=== PATIENT | male | born 1945 | race Caucasian/White ===

== ENCOUNTER 2018-02-05 10:17 | Inpatient (IN) | payer OTHER ==
[~2018-02-05] VITALS: Ht 170.2 cm; Wt 113.0 kg
[2018-02-05 10:47] LABS: Hemoglobin 12.2 g/dL (13.5-17.5); Mean Corpuscular HGB 26.8 pg (26.0-34.0); Mean Corpuscular HGB Conc 32.1 g/dL (31.5-36.5); Mean Corpuscular Volume 84 fL (80-100); Mean Platelet Volume 11.7 fL (9.1-12.4); Platelet Count 222 K/mm3 (150-400); RDW Coefficient Variation 15.2 % (11.7-14.2); RDW Standard Deviation 46.3 fL (35.1-46.3); Red Blood Cell Count 4.55 M/mm3 (4.30-5.90); White Blood Cell Count 11.19 K/mm3 (4.00-11.30)
[2018-02-05 11:03] LABS: International Normalized Ratio 1.03; Prothrombin Time Results 10.7 Sec (9.7-11.5)
[2018-02-05] MEDS ORDERED: ATOR80 PO (11:03)
[2018-02-05] MEDS ORDERED: LOSA50 PO (11:03)
[2018-02-05] MEDS ORDERED: METO100ER PO (11:03)
[2018-02-05] MEDS ORDERED: HYDR-86 PO (11:04)
[2018-02-05] MEDS ORDERED: AMLO10 PO (11:05)
[2018-02-05] MEDS ORDERED: ISOD40ER PO (11:05)
[2018-02-05] MEDS ORDERED: FURO40 PO (11:06)
[2018-02-05] MEDS ORDERED: NITR.4SL SL (11:06)
[2018-02-05 11:07] LABS: Alanine Aminotransfer (ALT/SGP 28 U/L (12-78); Albumin, Blood 3.6 g/dL (3.4-5.0); Albumin/Globulin Ratio 0.9 (0.8-1.8); Alk Phos 110 U/L (50-136); Anion Gap 10 mmol/L (6-16); Aspartate Aminotrans (AST/SGOT 18 U/L (12-37); Bilirubin, Total 0.3 mg/dL (0.1-1.0); Blood Urea Nitrogen 36 mg/dL (8-24); Bun/Creatinine Ratio 17.7 (12.0-20.0); CO2, Blood 19 mmol/L (21-32); Calcium, Blood 9.4 mg/dL (8.5-10.1); Chloride, Blood 116 mmol/L (98-108); Cholesterol 149 mg/dL (50-200); Creatinine, Blood 2.03 mg/dL (0.60-1.20); Globulin, Blood 3.9 g/dL (2.2-4.0); Glomerular Filtration Rate 34 (60-); Glucose, Blood 172 mg/dL (70-99); HDL Cholesterol 37 mg/dL (>39); LDL/HDL RATIO 2.1; Low Density Lipoprotein Chol 77 mg/dL (0-110); Magnesium, Blood 1.7 mg/dL (1.6-2.4); Potassium, Blood 4.6 mmol/L (3.5-5.5); Sodium, Blood 145 mmol/L (136-145); Total Protein, Blood 7.5 g/dL (6.4-8.2); Triglycerides 175 mg/dL (30-160); Very Low Density Lipoprot Chol 35 mg/dL (6-32)
[2018-02-06 03:35] LABS: Hematocrit 34.7 % (37.0-53.0); Hemoglobin 11.1 g/dL (13.5-17.5); Mean Corpuscular HGB 26.2 pg (26.0-34.0); Mean Corpuscular Volume 82 fL (80-100); RDW Coefficient Variation 15.2 % (11.7-14.2); RDW Standard Deviation 45.2 fL (35.1-46.3); Red Blood Cell Count 4.24 M/mm3 (4.30-5.90); White Blood Cell Count 10.11 K/mm3 (4.00-11.30)
[2018-02-06 03:45] LABS: Mean Platelet Volume 12.2 fL (9.1-12.4); Platelet Count 182 K/mm3 (150-400)
[2018-02-06 04:00] LABS: Alanine Aminotransfer (ALT/SGP 27 U/L (12-78); Albumin/Globulin Ratio 0.8 (0.8-1.8); Alk Phos 81 U/L (50-136); Anion Gap 8 mmol/L (6-16); Aspartate Aminotrans (AST/SGOT 54 U/L (12-37); Bilirubin, Total 0.4 mg/dL (0.1-1.0); Blood Urea Nitrogen 33 mg/dL (8-24); Bun/Creatinine Ratio 17.6 (12.0-20.0); CHOL/HDL RATIO 3.6; CO2, Blood 19 mmol/L (21-32); Calcium, Blood 8.7 mg/dL (8.5-10.1); Chloride, Blood 116 mmol/L (98-108); Cholesterol 119 mg/dL (50-200); Creatinine, Blood 1.88 mg/dL (0.60-1.20); Globulin, Blood 3.6 g/dL (2.2-4.0); Glomerular Filtration Rate 38 (60-); Glucose, Blood 100 mg/dL (70-99); HDL Cholesterol 33 mg/dL (>39); LDL/HDL RATIO 1.6; Low Density Lipoprotein Chol 52 mg/dL (0-110); Potassium, Blood 5.3 mmol/L (3.5-5.5); Sodium, Blood 143 mmol/L (136-145); Total Protein, Blood 6.6 g/dL (6.4-8.2); Triglycerides 171 mg/dL (30-160); Very Low Density Lipoprot Chol 34 mg/dL (6-32)
[2018-02-06] MEDS ORDERED: ISOMON20 PO (13:59)
[2018-02-06] MEDS ORDERED: Plavix75 MG PO (14:12)
[2018-02-06] MEDS ORDERED: FAMO20 PO (14:12)
== END 2018-02-06 14:30 | disposition home or self-care (01) | DRG 282 ==
LOC: ER 10:17 → ICUW 10:44
PROVIDERS: Emergency Medicine; Physician Assistant
PROC: B2111ZZ Fluoroscopy of Multiple Coronary Arteries using Low Osmolar Contrast (ICD-10-PCS; principal; 2018-02-05)
PROC: B41J1ZZ Fluoroscopy of Other Lower Arteries using Low Osmolar Contrast (ICD-10-PCS; 2018-02-05)
PROC: 4A023N7 Measurement of Cardiac Sampling and Pressure, Left Heart, Percutaneous Approach (ICD-10-PCS; 2018-02-05)
DX: I21.3 ST elevation (STEMI) myocardial infarction of unspecified site (principal); Z95.5 Presence of coronary angioplasty implant and graft; I24.9 Acute ischemic heart disease, unspecified; I25.2 Old myocardial infarction; I25.10 Atherosclerotic heart disease of native coronary artery without angina pectoris; E78.5 Hyperlipidemia, unspecified; I12.9 Hypertensive chronic kidney disease with stage 1 through stage 4 chronic kidney disease, or unspecified chronic kidney disease; G47.33 Obstructive sleep apnea (adult) (pediatric); N18.3 Chronic kidney disease, stage 3 (moderate); Z79.01 Long term (current) use of anticoagulants
CPT/HCPCS: 36415; 36416; 80053; 80061; 83735; 83880; 84484; 85027; 85347; 85610; 85730; 86850; 86900; 86901; 93005; 93010; 93459; 94660; 99152; 99153; 99285; C1769; C8929; J0282; J1644; J2250; J2405; J3010; J7030; Q9957; Q9967

== ENCOUNTER → 2018-07-04 | Outpatient (CLI) | payer OTHER ==
[~2018-07-04] MED LIST: AMLO10 PO; AMLO5 PO; ATOR80 PO; Azor 10-20 MG1 EACH; FAMO20 PO; FURO40 PO; HYDCHL25; HYDR-86 PO; HYDR1TAB94 PO; ISOD40ER PO; ISOMON20 PO; LOSA50 PO; METO100ER PO; NITR.4SL SL; PRED1 PO; Plavix75 MG PO
[2018-07-04 19:01] LABS: BASOPHILS ABSOLUTE AUTO 0.06 K/mm3 (0.00-0.23); BASOPHILS PERCENT AUTO 1 % (0-2); EOSINOPHILS ABSOLUTE AUTO 0.24 K/mm3 (0.00-0.68); EOSINOPHILS PERCENT AUTO 2 % (0-6); Hematocrit 36.9 % (37.0-53.0); Hemoglobin 11.7 g/dL (13.5-17.5); IMMATURE GRAN ABSOLUTE AUTO 0.05 K/mm3 (0.00-0.10); IMMATURE GRAN PERCENT AUTO 0 % (0-1); LYMPHOCYTES ABSOLUTE AUTO 2.15 K/mm3 (0.84-5.20); LYMPHOCYTES PERCENT AUTO 17 % (21-46); MONOCYTES ABSOLUTE AUTO 0.89 K/mm3 (0.16-1.47); MONOCYTES PERCENT AUTO 7 % (4-13); Mean Corpuscular HGB 26.4 pg (26.0-34.0); Mean Corpuscular HGB Conc 31.7 g/dL (31.5-36.5); Mean Corpuscular Volume 83 fL (80-100); Mean Platelet Volume 12.5 fL (9.1-12.4); NEUTROPHILS ABSOLUTE AUTO 8.95 K/mm3 (1.96-9.15); NEUTROPHILS PERCENT AUTO 73 % (41-73); Platelet Count 214 K/mm3 (150-400); RDW Coefficient Variation 15.9 % (11.7-14.2); RDW Standard Deviation 48.4 fL (35.1-46.3); Red Blood Cell Count 4.43 M/mm3 (4.30-5.90); White Blood Cell Count 12.34 K/mm3 (4.00-11.30)
== END | disposition home or self-care (01) ==
LOC: LAB SHORT 18:08 → LAB 18:08
PROVIDERS: Nurse Practitioner
DX: M25.521 Pain in right elbow (principal)
CPT/HCPCS: 84550; 85025

== ENCOUNTER 2019-11-03 16:58 | Observation (INO) | payer OTHER ==
[~2019-11-03] VITALS: Ht 170.2 cm; Wt 103.1 kg
[~2019-11-03 16:58] MED LIST changes: +ASPI325EC PO
[2019-11-03 17:39] LABS: BASOPHILS ABSOLUTE AUTO 0.08 K/mm3 (0.00-0.23); BASOPHILS PERCENT AUTO 1 % (0-2); EOSINOPHILS ABSOLUTE AUTO 0.25 K/mm3 (0.00-0.68); EOSINOPHILS PERCENT AUTO 2 % (0-6); Hematocrit 41.4 % (37.0-53.0); IMMATURE GRAN ABSOLUTE AUTO 0.02 K/mm3 (0.00-0.10); IMMATURE GRAN PERCENT AUTO 0 % (0-1); LYMPHOCYTES ABSOLUTE AUTO 2.24 K/mm3 (0.84-5.20); LYMPHOCYTES PERCENT AUTO 20 % (21-46); MONOCYTES ABSOLUTE AUTO 0.78 K/mm3 (0.16-1.47); MONOCYTES PERCENT AUTO 7 % (4-13); Mean Corpuscular HGB 26.9 pg (26.0-34.0); Mean Corpuscular HGB Conc 31.4 g/dL (31.5-36.5); Mean Corpuscular Volume 86 fL (80-100); Mean Platelet Volume 11.7 fL (9.1-12.4); NEUTROPHILS PERCENT AUTO 70 % (41-73); Platelet Count 255 K/mm3 (150-400); RDW Coefficient Variation 14.8 % (11.7-14.2); Red Blood Cell Count 4.84 M/mm3 (4.30-5.90); White Blood Cell Count 11.27 K/mm3 (4.00-11.30)
[2019-11-03 18:03] LABS: Albumin, Blood 3.9 g/dL (3.4-5.0); Albumin/Globulin Ratio 0.9 (0.8-1.8); Bilirubin, Total 0.3 mg/dL (0.1-1.0); Bun/Creatinine Ratio 18.5 (12.0-20.0); Calcium, Blood 10.2 mg/dL (8.5-10.1); Creatinine, Blood 2.33 mg/dL (0.60-1.20); Globulin, Blood 4.3 g/dL (2.2-4.0); Potassium, Blood 5.3 mmol/L (3.5-5.5); Total Protein, Blood 8.2 g/dL (6.4-8.2)
[2019-11-03 19:19] LABS: Prothrombin Time Results 10.7 Sec (9.7-11.5)
[2019-11-03] MEDS ORDERED: HYDROCHLOROTH12.5 MG PO (19:41)
[2019-11-03] MEDS ORDERED: SODBIC650 PO (19:41)
[2019-11-04] MEDS ORDERED: FURO40 PO (01:31)
--- NOTE | 2019-11-04 03:58 | NUR ---
SUMMARY PT ARRIVED TO FLOOR IN NO DISTRESS. PT NEURO'S HAVE CHECKED ORDERED. PT STILL HAS DIFFICULTY FINDING WORDS AT TIMES. NO WEAKNESS OR FACIAL DROOP NOTED. WCTM. PT CURRENTLY SLEEPING AND BREATHING ESY. CALL LIGHT IN REACH.
[2019-11-04 05:21] LABS: BASOPHILS ABSOLUTE AUTO 0.06 K/mm3 (0.00-0.23); BASOPHILS PERCENT AUTO 1 % (0-2); EOSINOPHILS ABSOLUTE AUTO 0.14 K/mm3 (0.00-0.68); EOSINOPHILS PERCENT AUTO 1 % (0-6); Hematocrit 37.9 % (37.0-53.0); Hemoglobin 12.2 g/dL (13.5-17.5); IMMATURE GRAN ABSOLUTE AUTO 0.03 K/mm3 (0.00-0.10); IMMATURE GRAN PERCENT AUTO 0 % (0-1); LYMPHOCYTES ABSOLUTE AUTO 2.75 K/mm3 (0.84-5.20); LYMPHOCYTES PERCENT AUTO 26 % (21-46); MONOCYTES ABSOLUTE AUTO 0.91 K/mm3 (0.16-1.47); MONOCYTES PERCENT AUTO 9 % (4-13); Mean Corpuscular HGB 27.2 pg (26.0-34.0); Mean Corpuscular HGB Conc 32.2 g/dL (31.5-36.5); Mean Corpuscular Volume 85 fL (80-100); Mean Platelet Volume 11.9 fL (9.1-12.4); NEUTROPHILS ABSOLUTE AUTO 6.77 K/mm3 (1.96-9.15); NEUTROPHILS PERCENT AUTO 64 % (41-73); Platelet Count 236 K/mm3 (150-400); RDW Coefficient Variation 14.8 % (11.7-14.2); RDW Standard Deviation 45.7 fL (35.1-46.3); Red Blood Cell Count 4.48 M/mm3 (4.30-5.90); White Blood Cell Count 10.66 K/mm3 (4.00-11.30)
[2019-11-04 05:52] LABS: Albumin, Blood 3.5 g/dL (3.4-5.0); Albumin/Globulin Ratio 0.9 (0.8-1.8); Bilirubin, Total 0.3 mg/dL (0.1-1.0); Bun/Creatinine Ratio 17.4 (12.0-20.0); Calcium, Blood 9.6 mg/dL (8.5-10.1); Creatinine, Blood 2.3 mg/dL (0.60-1.20); Globulin, Blood 3.7 g/dL (2.2-4.0); Potassium, Blood 4.9 mmol/L (3.5-5.5); Total Protein, Blood 7.2 g/dL (6.4-8.2)
--- NOTE | 2019-11-04 06:46 | NUR ---
Patient in room 343 has given promission to student nurse LUÍS SPRINGER to [facility] on 11/04/2019 from [phone]
--- NOTE | 2019-11-04 15:03 | NUR ---
1430 PT DISCHARGED TO HOME. NO NEW MEDS. PT EDCUATED REGARDING MEDICATIONS AND HTN AND MODIFIABLE RISK FACTORS. PT TO FOLLOW UP WITH PCP. PT DRESSED BY SELF AND REQUESTED TO WALK OUT WITH . NO WC NEEDED PER PT. STUDENT NURSE OCCOMPANIED.
== END 2019-11-04 14:30 | disposition home or self-care (01) ==
LOC: ER 16:58 → MEDS 16:59
PROVIDERS: Emergency Medicine; Physician Assistant; ADMIT Internal Medicine
DX: R47.1 Dysarthria and anarthria (principal); I16.0 Hypertensive urgency; I65.29 Occlusion and stenosis of unspecified carotid artery; I12.9 Hypertensive chronic kidney disease with stage 1 through stage 4 chronic kidney disease, or unspecified chronic kidney disease; N18.3 Chronic kidney disease, stage 3 (moderate); I25.10 Atherosclerotic heart disease of native coronary artery without angina pectoris; I25.2 Old myocardial infarction; E78.5 Hyperlipidemia, unspecified; K21.9 Gastro-esophageal reflux disease without esophagitis; Z79.82 Long term (current) use of aspirin; Z79.02 Long term (current) use of antithrombotics/antiplatelets; Z88.8 Allergy status to other drugs, medicaments and biological substances; Z79.899 Other long term (current) drug therapy; G47.33 Obstructive sleep apnea (adult) (pediatric); Z99.89 Dependence on other enabling machines and devices; Z95.1 Presence of aortocoronary bypass graft
CPT/HCPCS: 36415; 70450; 70551; 80053; 85025; 85610; 85730; 93005; 93010; 93306; 93880; 96372; 96374; 99285-25; A9270-GY; G0378; J1644

== ENCOUNTER 2019-11-19 18:26 | Inpatient (IN) | payer OTHER ==
[~2019-11-19] VITALS: Ht 170.2 cm; Wt 103.0 kg
[~2019-11-19 18:26] MED LIST changes: +HYDROCHLOROTH12.5 MG PO; +SODBIC650 PO
[2019-11-19 18:50] LABS: BASOPHILS ABSOLUTE AUTO 0.07 K/mm3 (0.00-0.23); BASOPHILS PERCENT AUTO 1 % (0-2); EOSINOPHILS ABSOLUTE AUTO 0.32 K/mm3 (0.00-0.68); EOSINOPHILS PERCENT AUTO 3 % (0-6); Hematocrit 38.1 % (37.0-53.0); Hemoglobin 12.2 g/dL (13.5-17.5); IMMATURE GRAN ABSOLUTE AUTO 0.03 K/mm3 (0.00-0.10); IMMATURE GRAN PERCENT AUTO 0 % (0-1); LYMPHOCYTES ABSOLUTE AUTO 2.72 K/mm3 (0.84-5.20); LYMPHOCYTES PERCENT AUTO 25 % (21-46); MONOCYTES ABSOLUTE AUTO 0.99 K/mm3 (0.16-1.47); MONOCYTES PERCENT AUTO 9 % (4-13); Mean Corpuscular HGB 27.4 pg (26.0-34.0); Mean Corpuscular Volume 85 fL (80-100); Mean Platelet Volume 11.4 fL (9.1-12.4); NEUTROPHILS ABSOLUTE AUTO 6.82 K/mm3 (1.96-9.15); NEUTROPHILS PERCENT AUTO 62 % (41-73); Platelet Count 225 K/mm3 (150-400); RDW Coefficient Variation 14.7 % (11.7-14.2); RDW Standard Deviation 46.3 fL (35.1-46.3); Red Blood Cell Count 4.46 M/mm3 (4.30-5.90); White Blood Cell Count 10.95 K/mm3 (4.00-11.30)
[2019-11-19 19:16] LABS: Alanine Aminotransfer (ALT/SGP 27 U/L (12-78); Albumin, Blood 3.7 g/dL (3.4-5.0); Albumin/Globulin Ratio 0.9 (0.8-1.8); Alk Phos 87 U/L (50-136); Anion Gap 4 mmol/L (6-16); Aspartate Aminotrans (AST/SGOT 16 U/L (12-37); Bilirubin, Total 0.3 mg/dL (0.1-1.0); Blood Urea Nitrogen 38 mg/dL (8-24); Bun/Creatinine Ratio 17.4 (12.0-20.0); CO2, Blood 26 mmol/L (21-32); Calcium, Blood 9.6 mg/dL (8.5-10.1); Chloride, Blood 111 mmol/L (98-108); Creatinine, Blood 2.18 mg/dL (0.60-1.20); Globulin, Blood 3.9 g/dL (2.2-4.0); Glomerular Filtration Rate 31 (60-); Glucose, Blood 105 mg/dL (70-99); Sodium, Blood 141 mmol/L (136-145); Total Protein, Blood 7.6 g/dL (6.4-8.2); Troponin I <0.015 ng/mL (0.000-0.040)
[2019-11-20] MEDS ORDERED: LOSA25 PO (01:02)
[2019-11-20] MEDS ORDERED: Norco 5-325 Ta1 EACH PO (01:06)
[2019-11-20] MEDS ORDERED: THERA-D2000 UNIT PO (01:06)
--- NOTE | 2019-11-20 05:48 | NUR ---
SHIFT SUMMARY: ESTELA IS A PLEASANT GENTLEMAN WHO ADMITTED FROM THE ER OVERNIGHT. HE IS A&OX4. HE HAS A CARDIAC HISTORY SIGNIFICANT FOR HTN, HLD, MIx3, FOUR VESSEL CABG IN 1995, AND RETICULOCYTE SYSTOLIC HEART FAILURE. HE DENIES ANY CHEST PAIN OR SOB. HE IS INDPENDENT TO THE BATHROOM. HE GAVE A THOROUGH HISTORY AND IS CONCERNED ABOUT CONTINUING TO TAKE HIS MEDICATIONS PRESCRIBED BY HIS GLUE MAKER BONE WHILE IN THE HOSPITAL. HE SEES DR. ROTH FOR HIS CKD III. HE DENIED THE NEED FOR CPAP, STATING THAT HE DOES NOT USE ONE AT HOME BUT MANAGES HIS AIRWAY BY SLEEPING ELEVATED ON PILLOWS. HE USES HIS CALL LIGHT APPROPRIATELY. HEPARIN DRIP INFUSING. WILL REPORT TO DAY SHIFT RN.
[2019-11-20 09:07] LABS: International Normalized Ratio 1.06; Prothrombin Time Results 11.3 Sec (9.7-11.5)
--- NOTE | 2019-11-20 11:22 | NUR ---
PT TO EDGE INKER AT THIS TIME
--- NOTE | 2019-11-20 12:52 | NUR ---
PT RETURNS FROM CRIMINAL DEFENSE LAWYER, ANGIOSEAL IN PLACE NO ACTIVE BLEEDING FROM SITE. SKIN PWD AND INTACT
--- NOTE | 2019-11-20 17:33 | NUR ---
SHIFT NOTE PT HAS BEEN RESTING CP FREE T/O THE DAY. PT INITIALLY HAD ANXIETY ABOUT GOING FOR ANGIO THIS AM, BUT WAS RESOLVED WITH ATIVAN PRIOR TO ANGIO. PT TO HIGH SCHOOL SCIENCE TEACHER, RETURNS WITH ANGIOSEAL PLACED TO RT GROIN, NO INTERVENTIONS WERE NEEDED. PT SITTING UP AT BEDSIDE EATING AT THIS TIME. PT IS NEARLY COMPLETE WITH 1L NS BOLUS.
--- NOTE | 2019-11-20 19:30 | NUR ---
SHIFT ASSESSMENT PT IS ALERT AND ORIENTED UP WALKING IN ROOM. OFF GOING BEDSIDE REPORT RECIEVED FROM LUIS DOTSON. PT STATES HE FEELS GREAT AND HAS NO PAIN. NO SOB NOTED UPON PT BEING UP AND WANDERING ROOM. IV WAS DISCONECTED AT THIS TIME. IV SITE TO RIGHT AC IS PATENT AND NO S/S OF INFECTION. VITALS ARE STABLE AT THIS TIME. RIGHT ANGOISEAL WAS CHECKED BY THIS RN. SITE IS SOFT WITH NO TENDERNESS. DRESSING IS CDI WITH A SMALL SPOT OF BLOOD. OVERALL PT SEEMS PLESANT AND COOPERTIVE WITH CARE. WILL CON'T TO MONITOR PT T/O REMAINDER OF SHIFT. CALL LIGHT IN REACH OF PT.
--- NOTE | 2019-11-20 23:43 | NUR ---
ASSESSMENT PT WAS RESTING WELL UPON THIS RN ENTERING ROOM. HE WOKE EASILY TO VERBAL STIMULI. STATES HE FEELS GOOD AND HAS NO COMPLAINTS. VITALS ARE STABLE AT THIS TIME. WILL CON'T TO MONITOR PT. CALL LIGHT IN REACH AND ENCOURAGED PT TO USE BEFORE GETTING UP AND AROUND IN ROOM.
[2019-11-21 03:56] LABS: BASOPHILS ABSOLUTE AUTO 0.04 K/mm3 (0.00-0.23); BASOPHILS PERCENT AUTO 0 % (0-2); EOSINOPHILS PERCENT AUTO 2 % (0-6); Hematocrit 35.9 % (37.0-53.0); Hemoglobin 11.6 g/dL (13.5-17.5); IMMATURE GRAN ABSOLUTE AUTO 0.03 K/mm3 (0.00-0.10); IMMATURE GRAN PERCENT AUTO 0 % (0-1); LYMPHOCYTES ABSOLUTE AUTO 2.26 K/mm3 (0.84-5.20); LYMPHOCYTES PERCENT AUTO 22 % (21-46); MONOCYTES ABSOLUTE AUTO 0.82 K/mm3 (0.16-1.47); MONOCYTES PERCENT AUTO 8 % (4-13); Mean Corpuscular HGB 27.3 pg (26.0-34.0); Mean Corpuscular HGB Conc 32.3 g/dL (31.5-36.5); Mean Corpuscular Volume 85 fL (80-100); Mean Platelet Volume 12.1 fL (9.1-12.4); NEUTROPHILS ABSOLUTE AUTO 6.72 K/mm3 (1.96-9.15); NEUTROPHILS PERCENT AUTO 67 % (41-73); Platelet Count 224 K/mm3 (150-400); RDW Coefficient Variation 14.7 % (11.7-14.2); RDW Standard Deviation 45.1 fL (35.1-46.3); Red Blood Cell Count 4.25 M/mm3 (4.30-5.90); White Blood Cell Count 10.07 K/mm3 (4.00-11.30)
[2019-11-21 04:16] LABS: Bun/Creatinine Ratio 19.4 (12.0-20.0); Calcium, Blood 9.4 mg/dL (8.5-10.1); Creatinine, Blood 2.22 mg/dL (0.60-1.20)
--- NOTE | 2019-11-21 06:19 | NUR ---
SHIFT SUMMARY WOKE PT THIS AM FOR MORNING VITALS. HE STATES HE RESTED WELL LAST NIGHT AND IS READY FOR THE DAY. VITALS ARE STABLE THIS AM. PT HAS NO COMPLAINTS OF PAIN. NO CHANGE TO RIGHT GROIN QUALITY. OVERALL NO CHANGES FROM BASELINE. WILL CON'T TO MONITOR AND KEEP PT SAFE TILL REPORT TO ONCOMING RN.
[2019-11-21] MEDS ORDERED: ACET325 PO (11:09)
[2019-11-21] MEDS ORDERED: HYDR10 PO (11:11)
--- NOTE | 2019-11-21 11:58 | NUR ---
PT D/C HOME, IV REMOVED INTACT,PT PROVIDED WITH ALL BELONGINGS, PT EXPRESSED UNDERSTANDING OF DC TEACHING AND NEW MEDICATIONS
== END 2019-11-21 11:33 | disposition home or self-care (01) | DRG 281 ==
LOC: ER 18:26 → PCU 18:27
PROVIDERS: Emergency Medicine; Family Medicine; ADMIT Internal Medicine
PROC: 4A023N7 Measurement of Cardiac Sampling and Pressure, Left Heart, Percutaneous Approach (ICD-10-PCS; principal; 2019-11-20)
PROC: B218YZZ Fluoroscopy of Left Internal Mammary Bypass Graft using Other Contrast (ICD-10-PCS; 2019-11-20)
PROC: B211YZZ Fluoroscopy of Multiple Coronary Arteries using Other Contrast (ICD-10-PCS; 2019-11-20)
PROC: B51CYZZ Fluoroscopy of Left Lower Extremity Veins using Other Contrast (ICD-10-PCS; 2019-11-20)
DX: I21.4 Non-ST elevation (NSTEMI) myocardial infarction (principal); I50.22 Chronic systolic (congestive) heart failure; I13.0 Hypertensive heart and chronic kidney disease with heart failure and stage 1 through stage 4 chronic kidney disease, or unspecified chronic kidney disease; D63.1 Anemia in chronic kidney disease; N18.3 Chronic kidney disease, stage 3 (moderate); I25.10 Atherosclerotic heart disease of native coronary artery without angina pectoris; G47.33 Obstructive sleep apnea (adult) (pediatric); F41.9 Anxiety disorder, unspecified; E78.5 Hyperlipidemia, unspecified; Z86.73 Personal history of transient ischemic attack (TIA), and cerebral infarction without residual deficits; I25.2 Old myocardial infarction; Z95.1 Presence of aortocoronary bypass graft; Z79.82 Long term (current) use of aspirin; Z79.02 Long term (current) use of antithrombotics/antiplatelets; Z79.899 Other long term (current) drug therapy
CPT/HCPCS: 36415; 71045; 76937; 80048; 80053; 84484; 85025; 85610; 85730; 93005; 93010; 93459; 96372; 96374; 99152; 99153; 99285-25; A9270-GY; C1760; C1769; C1894; G0378; J0360; J1644; J2250; J3010; J7030; Q9967

== ENCOUNTER → 2021-09-28 | Outpatient (CLI) | payer OTHER ==
[~2021-09-28] MED LIST changes: +ACET325 PO; +CHLO25B PO; +HYDCHL25 PO; +HYDR10 PO; -HYDROCHLOROTH12.5 MG PO; -ISOMON20 PO; +ISOSORBIDE MONO60 MG PO; +LOSA25 PO; +Norco 5-325 Ta1 EACH PO; +Vitamin D2000 UNIT PO
[2021-09-28 13:41] LABS: Creatinine, Urine Random 72.2 mg/dL (27.00-270.00); Protein, Urine Random 63.8 mg/dL (0.0-11.9); Protein/Creat Ratio, Ur Random 0.9
[2021-09-29 06:10] LABS: BASO (ABSOLUTE) 0.1 x10E3/uL (0.0-0.2); BASOS 1 % (Not Estab.); EOS 3 % (Not Estab.); EOS (ABSOLUTE) 0.3 x10E3/uL (0.0-0.4); HEMATOCRIT 36.2 % (37.5-51.0); HEMOGLOBIN 11.9 g/dL (13.0-17.7); IMMATURE GRANULOCYTES 0 % (Not Estab.); LYMPHS 27 % (Not Estab.); LYMPHS (ABSOLUTE) 2.4 x10E3/uL (0.7-3.1); MCH 27.5 pg (26.6-33.0); MCHC 32.9 g/dL (31.5-35.7); MCV 84 fL (79-97); MONOCYTES 7 % (Not Estab.); MONOCYTES(ABSOLUTE) 0.6 x10E3/uL (0.1-0.9); NEUTROPHILS 62 % (Not Estab.); NEUTROPHILS (ABSOLUTE) 5.5 x10E3/uL (1.4-7.0); PLATELETS 291 x10E3/uL (150-450); RBC 4.33 x10E6/uL (4.14-5.80); RDW 15.2 % (11.6-15.4); WBC 8.9 x10E3/uL (3.4-10.8)
[2021-09-29 07:10] LABS: CREATININE, SERUM 2.4 mg/dL (0.76-1.27); PHOSPHORUS, SERUM 3.8 mg/dL (2.8-4.1)
[2021-09-29 07:10] LABS: BUN 46 mg/dL (8-27); BUN/CREATININE RATIO 19 (10-24); CARBON DIOXIDE, TOTAL 19 mmol/L (20-29); CHLORIDE, SERUM 108 mmol/L (96-106); CHOLESTEROL, TOTAL 125 mg/dL (100-199); CREATININE, SERUM 2.42 mg/dL (0.76-1.27); EGFR IF AFRICN AM 29 (>59); EGFR IF NONAFRICN AM 25 (>59); GLUCOSE, SERUM 108 mg/dL (65-99); HDL CHOLESTEROL 31 mg/dL (>39); LDL CHOLESTEROL CALC 61 mg/dL (0-99); SODIUM, SERUM 142 mmol/L (134-144); TRIGLYCERIDES 202 mg/dL (0-149); VLDL CHOLESTEROL CAL 33 mg/dL (5-40)
[2021-09-29 08:10] LABS: HEMOGLOBIN A1C 6.1 % (4.8-5.6)
== END | disposition home or self-care (01) ==
LOC: LAB 09:43 → LAB SHORT 09:43
PROVIDERS: Internal Medicine Nephrology; Nurse Practitioner Family
DX: Z00.00 Encounter for general adult medical examination without abnormal findings (principal); N18.32 Chronic kidney disease, stage 3b; E55.9 Vitamin D deficiency, unspecified; R73.03 Prediabetes
CPT/HCPCS: 36415; 80048; 80061; 80069; 82306; 82570; 83036; 83970; 84156; 84443; 85025

== ENCOUNTER 2022-04-30 09:20 | Inpatient (IN) | payer OTHER ==
[~2022-04-30] VITALS: Ht 165.1 cm; Wt 100.3 kg
[2022-04-30 09:58] LABS: Albumin, Blood 3.5 g/dL (3.4-5.0); Albumin/Globulin Ratio 0.9 (0.8-1.8); Bilirubin, Total 0.4 mg/dL (0.1-1.0); Bun/Creatinine Ratio 18.7 (12.0-20.0); Calcium, Blood 9.3 mg/dL (8.5-10.1); Creatinine, Blood 3.42 mg/dL (0.60-1.20); Globulin, Blood 3.7 g/dL (2.2-4.0); Potassium, Blood 3.7 mmol/L (3.5-5.5); Total Protein, Blood 7.2 g/dL (6.4-8.2)
[2022-04-30 09:59] LABS: BASOPHILS ABSOLUTE AUTO 0.08 K/mm3 (0.00-0.23); BASOPHILS PERCENT AUTO 1 % (0-2); EOSINOPHILS ABSOLUTE AUTO 0.36 K/mm3 (0.00-0.68); EOSINOPHILS PERCENT AUTO 3 % (0-6); Hematocrit 35.7 % (37.0-53.0); Hemoglobin 11.4 g/dL (13.5-17.5); IMMATURE GRAN ABSOLUTE AUTO 0.03 K/mm3 (0.00-0.10); IMMATURE GRAN PERCENT AUTO 0 % (0-1); LYMPHOCYTES ABSOLUTE AUTO 3.56 K/mm3 (0.84-5.20); LYMPHOCYTES PERCENT AUTO 30 % (21-46); MONOCYTES ABSOLUTE AUTO 0.99 K/mm3 (0.16-1.47); MONOCYTES PERCENT AUTO 9 % (4-13); Mean Corpuscular HGB 27.3 pg (26.0-34.0); Mean Corpuscular HGB Conc 31.9 g/dL (31.5-36.5); Mean Corpuscular Volume 86 fL (80-100); Mean Platelet Volume 12.7 fL (9.1-12.4); NEUTROPHILS ABSOLUTE AUTO 6.69 K/mm3 (1.96-9.15); NEUTROPHILS PERCENT AUTO 57 % (41-73); Platelet Count 266 K/mm3 (150-400); RDW Coefficient Variation 15.9 % (11.7-14.2); RDW Standard Deviation 49.8 fL (35.1-46.3); Red Blood Cell Count 4.17 M/mm3 (4.30-5.90); White Blood Cell Count 11.71 K/mm3 (4.00-11.30)
[2022-04-30] MEDS ORDERED: FUROSEMIDE40 MG PO (11:50)
[2022-04-30] MEDS ORDERED: LOSARTAN POTASS25 M2 PO (11:51)
[2022-04-30] MEDS ORDERED: HYDCHL25 PO (11:52)
[2022-04-30 15:05] LABS: Anti-Xa UFH, PHA Monitoring <0.10 IU/mL; International Normalized Ratio 1.07; Prothrombin Time Results 11.2 Sec (9.7-11.5)
--- NOTE | 2022-04-30 18:21 | NUR ---
SHIFT SUMMARY 1425 PT TO RM 313 VIA W/C FROM ER. PT ADMITTED FOR NSTEMI. DENIED CP AT TIME OF ARRIVAL. CARDIOLOGY CONSULT CALLED TO DR HAYES, WHO SOON CAME TO PT'S RM TO SEE HIM AND DISCUSS PLAN OF CARE. NEW ORDERS PLACED WITH POSSIBLE ANGIO GRAM TO BE DONE IN AM. DR HAYES LATER RETURNED TO SEE PT AGAIN AND UPDATE PT ON PLAN OF CARE D/T DECREASED KIDNEY FUNCTION. PT TO BE NPO AT SC AND DR HAYES TO SEE PT IN AM AND DISCUSS PT STATUS AT THAT TIME. HEPARIN DRIP STARTED PER ORDERS. PT CONTINUES TO DENY CP, REPORTING "OCCASSIONAL TWINGE ACROSS UPPER ABD". PT WITH HX OF LA AND CABG IN 1995. PT IS UP WITH SBA TO BTHRM NEEDED AND USING URINAL AT BS. CALL LT IN REACH AND ABLE TO MAKE NEEDS KNOWN. TO FROM ER AND LATER WENT HOME.
--- NOTE | 2022-05-01 00:03 | NUR ---
MIDNIGHT EKG COMPLETE, COPY IN CHART.
--- NOTE | 2022-05-01 01:22 | NUR ---
TROPONIN CRITICAL HIGH [id number]. REPORTED LAB VALUE TO DR. LEE Saxena [id number].
--- NOTE | 2022-05-01 04:01 | NUR ---
SHIFT SUMMARY PT COMPLAINED OF CHEST PAIN EARLIER TONIGHT. MEDICATED WITH NORCO PER EMAR AND PT WAS ABLE TO FALL ASLEEP AND HAD NO MORE CP. PT CURRENTLY HAS NO PAIN. VS [place] [id number]. EKG PERFORMED AT MIDNIGHT. RESULTS IN THE CHART. CALL LIGHT IS WITHIN PT REACH.
[2022-05-01 05:21] LABS: BASOPHILS ABSOLUTE AUTO 0.06 K/mm3 (0.00-0.23); BASOPHILS PERCENT AUTO 1 % (0-2); EOSINOPHILS ABSOLUTE AUTO 0.09 K/mm3 (0.00-0.68); EOSINOPHILS PERCENT AUTO 1 % (0-6); Hematocrit 39.8 % (37.0-53.0); Hemoglobin 12.3 g/dL (13.5-17.5); IMMATURE GRAN ABSOLUTE AUTO 0.02 K/mm3 (0.00-0.10); IMMATURE GRAN PERCENT AUTO 0 % (0-1); LYMPHOCYTES ABSOLUTE AUTO 1.78 K/mm3 (0.84-5.20); LYMPHOCYTES PERCENT AUTO 17 % (21-46); MONOCYTES ABSOLUTE AUTO 0.97 K/mm3 (0.16-1.47); MONOCYTES PERCENT AUTO 9 % (4-13); Mean Corpuscular HGB 26.8 pg (26.0-34.0); Mean Corpuscular HGB Conc 30.9 g/dL (31.5-36.5); Mean Corpuscular Volume 87 fL (80-100); Mean Platelet Volume 12.2 fL (9.1-12.4); NEUTROPHILS ABSOLUTE AUTO 7.81 K/mm3 (1.96-9.15); NEUTROPHILS PERCENT AUTO 73 % (41-73); Platelet Count 254 K/mm3 (150-400); RDW Standard Deviation 50.4 fL (35.1-46.3); Red Blood Cell Count 4.59 M/mm3 (4.30-5.90); White Blood Cell Count 10.73 K/mm3 (4.00-11.30)
[2022-05-01 05:54] LABS: Alanine Aminotransfer (ALT/SGP 29 U/L (12-78); Albumin, Blood 3.4 g/dL (3.4-5.0); Albumin/Globulin Ratio 0.8 (0.8-1.8); Alk Phos 67 U/L (50-136); Anion Gap 10 mmol/L (6-16); Aspartate Aminotrans (AST/SGOT 127 U/L (12-37); Bilirubin, Total 0.6 mg/dL (0.1-1.0); Blood Urea Nitrogen 68 mg/dL (8-24); Bun/Creatinine Ratio 19.4 (12.0-20.0); CHOL/HDL RATIO 3.3; CO2, Blood 18 mmol/L (21-32); Calcium, Blood 9.4 mg/dL (8.5-10.1); Chloride, Blood 110 mmol/L (98-108); Cholesterol 115 mg/dL (50-200); Globulin, Blood 4.2 g/dL (2.2-4.0); Glomerular Filtration Rate 17 (60-); Glucose, Blood 122 mg/dL (70-99); HDL Cholesterol 35 mg/dL (>39); LDL/HDL RATIO 1.4; Low Density Lipoprotein Chol 48 mg/dL (0-110); Potassium, Blood 4.5 mmol/L (3.5-5.5); Sodium, Blood 138 mmol/L (136-145); Total Protein, Blood 7.6 g/dL (6.4-8.2); Triglycerides 159 mg/dL (30-160); Very Low Density Lipoprot Chol 31 mg/dL (6-32)
--- NOTE | 2022-05-01 16:31 | NUR ---
SHIFT SUMMARY PT AWAKE DURING SHIFT REPORT. UP TO BTHRM TO VOID WITH SBA. PT REPORTED FEELING BETTER TODAY, REPORTING NORCO GIVEN BY NOC RN WAS VERY HELPFUL IN RELIEVING PAIN. TROPONINS ONLY SLIGHTLY INCREASED AT START OF SHIFT, FROM PREVIOUS RESULT AT VT. DR REYNOSO AND LEONIDAS BOTH IN TO SEE PT EARLY THIS AM. PT REMAINED NPO UNTIL DR HAYES IN TO SEE PT AND DISCUSS PLAN OF CARE. PT TO BE MEDICALLY MANAGED D/T RENAL FUNCTION; SEE CHART. PT ABLE TO EAT BREAKFAST LATER AND HAS REMAINED STABLE THRU OUT THE DAY. PT CONTINUES TO DENY CP TO PRESENT AND REPORTS "ALL IS WELL". UP TO BTHRM INDEPENDENTLY AND SBA AT TIMES. SOB WITH EXERTION THIS AM WHEN GOING TO BTHRM AND BACK, BUT SEEMS BETTER THIS AFTERNOON. RESTING QUIETLY IN BED AT THIS TIME. PT REPORTED THIS AM THAT HE SAT UP TO EOB ALL NIGHT D/T BEING ABLE TO BREATHE BETTER. DENIES FURTHER NEEDS AT THIS TIME. CALL LT IN REACH.
[2022-05-02 05:57] LABS: BASOPHILS ABSOLUTE AUTO 0.07 K/mm3 (0.00-0.23); BASOPHILS PERCENT AUTO 1 % (0-2); EOSINOPHILS ABSOLUTE AUTO 0.06 K/mm3 (0.00-0.68); EOSINOPHILS PERCENT AUTO 1 % (0-6); Hematocrit 36.4 % (37.0-53.0); Hemoglobin 11.9 g/dL (13.5-17.5); IMMATURE GRAN ABSOLUTE AUTO 0.05 K/mm3 (0.00-0.10); IMMATURE GRAN PERCENT AUTO 0 % (0-1); LYMPHOCYTES ABSOLUTE AUTO 2.27 K/mm3 (0.84-5.20); LYMPHOCYTES PERCENT AUTO 19 % (21-46); MONOCYTES ABSOLUTE AUTO 1.24 K/mm3 (0.16-1.47); MONOCYTES PERCENT AUTO 10 % (4-13); Mean Corpuscular HGB 27.7 pg (26.0-34.0); Mean Corpuscular HGB Conc 32.7 g/dL (31.5-36.5); Mean Corpuscular Volume 85 fL (80-100); Mean Platelet Volume 12.5 fL (9.1-12.4); NEUTROPHILS ABSOLUTE AUTO 8.34 K/mm3 (1.96-9.15); NEUTROPHILS PERCENT AUTO 69 % (41-73); Platelet Count 224 K/mm3 (150-400); RDW Coefficient Variation 15.6 % (11.7-14.2); RDW Standard Deviation 47.9 fL (35.1-46.3); Red Blood Cell Count 4.29 M/mm3 (4.30-5.90); White Blood Cell Count 12.03 K/mm3 (4.00-11.30)
--- NOTE | 2022-05-02 05:57 | NUR ---
PT with hx of 4 way CABG 1994 continues to require at least 4 l oxygen to keep sats at 90%. on tele SR 70's. PT is SOB with exertion desats to low 80's. He is on heparin gtt managed by pharmacy. Denies chest pain or acute distress but weak & SOB with exertion.
[2022-05-02 06:15] LABS: Albumin, Blood 3.1 g/dL (3.4-5.0); Albumin/Globulin Ratio 0.7 (0.8-1.8); Bilirubin, Total 0.6 mg/dL (0.1-1.0); Bun/Creatinine Ratio 19.5 (12.0-20.0); Calcium, Blood 9.2 mg/dL (8.5-10.1); Creatinine, Blood 3.75 mg/dL (0.60-1.20); Globulin, Blood 4.5 g/dL (2.2-4.0); Potassium, Blood 4.7 mmol/L (3.5-5.5); Total Protein, Blood 7.6 g/dL (6.4-8.2)
--- NOTE | 2022-05-02 13:33 | NUR ---
Pt resting in bed and is A&O. Pt denies pain at this time. Pt does report dyspnea with exertion. He also reports anxiety due to dyspnea. Pt's spouse Radha at bedside. Reviewed plan of care and engaged in therapeutic discussion regarding advanced care planning. Gentle education on disease process including trajectory and the importance of planning for the future. Discussed the importance of routine conversations with PCP. Discussed considering wishes for code status. Educated on life sustaining treatments including risk factors and implications to CPR. Provided POLST and Advanced Directive for Pt to consider completing. Educated on each section to complete for each form. Pt and spouse express appreciation and report no other concerns at this time.
[2022-05-02 15:19] LABS: Bun/Creatinine Ratio 18.4 (12.0-20.0); Calcium, Blood 9.8 mg/dL (8.5-10.1); Creatinine, Blood 4.25 mg/dL (0.60-1.20); Potassium, Blood 4.9 mmol/L (3.5-5.5)
--- NOTE | 2022-05-02 16:09 | NUR ---
SHIFT SUMMARY PT AWAKE AT START OF SHIFT, SITTING UP TO EOB. PT REPORTED NOT FEELING WELL TODAY AND UNABLE TO BREATHE LYING DOWN. PT ALSO VERY SOB WITH AMBULATING TO BTHRM. TROPONINS LEVELING OFF; SEE CHART, BUT KIDNEY FUNCTION STILL POOR AND SLIGHTLY DECLINED AGAIN TODAY. LASIX D/C'D AND LATER BUMEX ORDERED. BUMEX GIVEN A LITTLE LATE D/T LOSS OF IV SITE ACCESS FOR A WHILE. PT REMAINS ON HEPARIN DRIP AT SAME RATE; SEE CHART. PALLIATIVE CARE RN IN TO SEE PT AND AND DISCUSS CODE STATUS AND ADVANCED DIRECTIVE. PT REMAINS FULL CODE AT THIS TIME. LUNGS T/O WITH COARSE CRACKLES IN BASES TODAY. MEDICATED FOR C/O PAIN "ALL OVER" X1 THIS SHIFT. PT REPORTED PAIN MEDICATION EFFECTIVE. ABLE TO SLEEP THIS AFTERNOON. DID NOT WANT TO EAT BREAKFAST; DID DRINK HIS MILK. ATE SOME OF LUNCH TODAY, BUT STILL DECREASED APPETITE FROM YESTERDAY. DENIES FURTHER NEEDS AT THIS TIME. CALL LT IN REACH.
--- NOTE | 2022-05-02 17:58 | NUR ---
PT CONTINUES TO DECLINE IN THE WAY HE FEELS. VERY TIRED AND SOB WITH ANY MOVEMENTS NOW. LUNGS T/O THIS EVENING ARE TIGHTER AND MORE DIMINISHED WITH RHONCHI, CRACKLES AND WHEEZES. PT NOT EATING AGAIN TONIGHT, EVEN THOUGH ORDERING WHAT HE THOUGHT HE WANTED. PT DECLINED ALL OFFERS OF CHOICES. MEDICATED FOR C/O PAIN IN L SIDE AND BACK. INSENTIVE SPIROMETER GIVEN AND EDU WITH USE OF, PER DR REYNOSO. PT HESITANT D/T WEAKNESS AND SOB. CALL LT IN REACH.
[2022-05-03 08:40] LABS: Bun/Creatinine Ratio 17.3 (12.0-20.0); Calcium, Blood 9.5 mg/dL (8.5-10.1); Creatinine, Blood 5.26 mg/dL (0.60-1.20); Potassium, Blood 5.1 mmol/L (3.5-5.5)
[2022-05-03 09:51] LABS: Source, Urine Foley catheter
[2022-05-03 10:12] LABS: Appearance, Urine Clear (Clear); Bilirubin, Urine Neg (Neg); Blood, Urine Neg (Neg); Color, Urine Yellow (P-Yellow); Glucose Qualitative, Urine Neg (Neg); Ketones, Urine Neg (Neg); Leukocyte Esterase, Urine Neg (Neg); Nitrite, Urine Neg (Neg); Protein, Urine 2+ (Neg); Urobilinogen, Urine NORM (Normal)
--- NOTE | 2022-05-03 10:34 | NUR ---
PT TRANSFERED DOWN FROM MEDICAL FLOOR. PT IS A/O X4. DENIES CP AND N/V. SOB IS IMPROVED SINCE BEING ON BIPAP. BIPAP SETTINGS 14/[address] F[address] SMITH ON VIDEO MEETING WITH PT NOW.
--- NOTE | 2022-05-03 10:38 | NUR ---
ASSUMED CARE AT 0700. A/A/OX4. SITTING ON BEDSIDE WITH ARMS ON BEDSIDE TABLE. SPEAKING FULL SENTENCES BUT APPEARS SOB. O2 INCREASED FROM 4L TO 6L VIA NC. SATS INCREASED FROM 85% TO 87%. DENIES CHEST PAIN. RT NOTIFIED FOR HIGH FLOW CANNULA. DR. COMBS CALLED TO DISCUSS PT STATUS. DR. COMBS ARRIVES AT BEDSIDE. DISSCUSSED WORSENING KIDNEY LABS, INCREASED O2 NEEDS AND GENERAL ILL APPEARANCE. DR. REYNOSO TO BEDSIDE, VERBAL ORDER GIVEN TO INCREASE BUMEX IV TO 3MG. MEDICATED PER ORDERS. SATS CONTINUING TO DROP DESPITE INCREASED O2. 15L VIA HIGH FLOW CANNULA GIVEN WITH SATS REMAINING AT 88%. VERBAL ORDER GIVEN BY DR. ALVAREZ FOR BIPAP. RT TO ROOM, BIPAP STARTED. CHAPARRO CATH PLACED PER VERAL ORDER FROM DR. ALVAREZ. PT STATES CHANGED TO PCU. NEPHROLOGY AND CARDIOLOGY BEING CONTACTED BY DR. Combs. PT REPORTS CHEST PAIN, EKG AND TROPONIN COMPLETE. REPORT GIVEN TO NATALIE DOTSON IN PCU TO ASSUME CARE. TRANSFERRED TO PCU WITH VSS, BIPAP IN PLACE.
[2022-05-03 10:45] LABS: Red Blood Cells, Urine 0-2 /hpf (0-2); White Blood Cells, Urine 0-2 /hpf (0-5)
[2022-05-03 10:46] LABS: Amorphous Mod (0-Heavy); Bacteria Few /hpf; Hyaline Casts 0-2 /lpf (0-2); Squamous Epithelial Cells Few /hpf (Few)
[2022-05-03 13:20] LABS: Bun/Creatinine Ratio 17.7 (12.0-20.0); Calcium, Blood 9.6 mg/dL (8.5-10.1); Creatinine, Blood 5.3 mg/dL (0.60-1.20); Phosphorus, Blood 5.6 mg/dL (2.5-4.9)
--- NOTE | 2022-05-03 17:25 | NUR ---
SUMMARY PT RESTING IN BED ON BIPAP 14/8 FIO2 70%. PT DESATS QUICKLY WHEN OFF BIPAP ON HIGH FLOW NC AT 15L. BUMEX GIVEN PER DR. SMITH. PT STATES HIS SOB HAS IMPROVED SINCE BIPAP. DENIES CP AND N/V. ON HEPARIN GTT. DR. 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 UPDATE VIA PHONE. VSS SINCE ARRIVAL. NO OTHER ACUTE CHANGES.
--- NOTE | 2022-05-03 19:21 | NUR ---
CARE ASSUMPTION: PATIENT WITH BIPAP IN PLACE 16/04 70% WITH O2 SAT 93-94%. HEPARIN INFUSING AT 17U/KG/HR. PATIENT REQUESTED ICE WATER - OFF-GOING RN STATED PATIENT IS ASPIRATION RISK AND QUICKLY DESATS WITH ANY EXERTION. BED LOW WITH CALL LIGHT IN REACH.
[2022-05-04 04:04] LABS: Hematocrit 30.7 % (37.0-53.0); Platelet Count 207 K/mm3 (150-400)
[2022-05-04 04:06] LABS: Mean Platelet Volume 13.3 fL (9.1-12.4)
[2022-05-04 04:24] LABS: Magnesium, Blood 2.1 mg/dL (1.6-2.4)
[2022-05-04 04:25] LABS: Albumin, Blood 2.6 g/dL (3.4-5.0); Anion Gap 13 mmol/L (6-16); Blood Urea Nitrogen 114 mg/dL (8-24); Bun/Creatinine Ratio 18.5 (12.0-20.0); CO2, Blood 17 mmol/L (21-32); Calcium, Blood 9.2 mg/dL (8.5-10.1); Chloride, Blood 98 mmol/L (98-108); Creatinine, Blood 6.17 mg/dL (0.60-1.20); Glomerular Filtration Rate 9 (60-); Glucose, Blood 128 mg/dL (70-99); Phosphorus, Blood 6.8 mg/dL (2.5-4.9); Potassium, Blood 5.6 mmol/L (3.5-5.5); Sodium, Blood 128 mmol/L (136-145)
--- NOTE | 2022-05-04 05:23 | NUR ---
SHIFT SUMMARY: PATIENT DENIES CHEST PAIN, HAS INTERMITTENT SOB WITH EXERTION, DENIES N/V/D. VS STABLE ON 16/04 60% BIPAP SETTINGS. WORSENING KIDNEY FUNCTION NOTED IN LABS. NO OTHER CHANGES THIS SHIFT. BED LOW WITH CALL LIGHT IN REACH. WILL CONTINUE TO MONITOR AND REPORT TO ONCOMING RN.
--- NOTE | 2022-05-04 05:28 | NUR ---
CALL PLACED TO DR. JOY AT THIS TIME TO UPDATE ON AM LABS. NO ANSWER.
--- NOTE | 2022-05-04 18:16 | NUR ---
SHIFT SUMMARY; ASSUMED CARE AT 0700. A/A/OX4 TOLERATING BIPAP WELL. 16/04 60% WHEN ASSUMING CARE. DAY PROGRESSED O2 NEEDS INCREASED TO 80%. CONSENT FOR ANGIO BY DR. HAYES. PT UNABLE TO TOLERATE ANY POSITION OTHER THAN HIGH FOWLERS DUE TO SOB. REEVALUATED BY NEPTHROLOGIST. PLAN FOR PERMICATH PLACEMENT AND DIAYLSIS TODAY. POSSIBLE ANGIO WHEN RESPIRATORY STATUS AND KIDNEY FUNCTION IMPROVES. FAMILY AT BEDSIDE FOR DAY. RETURNED FROM PERICATH PLACEMENT IN LATE AFTERNOON. DRESSING CLEAN DRY AND INTACT WITHOUT HEMATOMA. HEPARIN CONTINUING ORDERED AT 17UNITS/KG. DIALYSIS IN ROOM AT THIS TIME. VERBAL ORDER FOR 0.5MG ATIVAN BY DR. REYNOSO FOR ANXIETY WITH BIPAP AND SOB. SLEEPING NOW WITH LABORED BREATHING. BIAPAP IN PLACE. WILL CONTINUE TO MONITOR AND TREAT UNTIL CHANGE OF SHIFT.
--- NOTE | 2022-05-05 05:09 | NUR ---
SHIFT SUMMARY PT RESTED WELL THROUGH THE NIGHT. ALERT AND ORIENTED, ABLE TO MAKE NEEDS KNOWN. COOPERATIVE WITH PLAN OF CARE. SATS >90% ON BIPAP 14/8 100%FIO2. WAS BIPAP DEPENDENT AT FIRST HALF OF SHIFT. PT REQUESTED TO TAKE BREAK FROM BIPAP, RT ASSISTED TO PLACE PATIENT BACK ON HHFNC - 35L/100%. PT TOLERATED OKAY WHEN AT REST. BUT PLACED BACK ON BIPAP WHEN SLEEPING. TELE READS NSR. NO C/O CHEST PAIN THROUGHOUT THE NIGHT. SAT ON EDGE OF BED FOR ABOUT 2 HRS, TOLERATED WELL. CHAPARRO IN PLACE - MINIMAL OUTPUT. NO BM. NO C/O PAIN. VSS. CALL LIGHT WITHIN REACH, BED IN LOWEST POSITION. WILL CONTINUE TO MONITOR.
--- NOTE | 2022-05-05 07:24 | NUR ---
ASSUMED CARE: PT SITTING UPRIGHT AT EDGE OF THE BED. AFIB WITH BBB ON TELE IN THE 90S. AIRVO AT 4L AND 100% FIO2. FAMILY AT BEDSIDE AT THIS TIME. DIALYSIS NURSE STATES HE WILL GET TREATMENT TODAY AND ADVISES TO HOLD ALL BP MEDS EXCEPT BUMEX. NO ACUTE NEEDS AT THIS TIME.
--- NOTE | 2022-05-05 07:55 | NUR ---
DR HAYES CAME TO SEE PT AND PT STATED HE DID NOT FEEL HE COULD LAY FLAT YET FOR CARDIAC CATH. PT IS STILL ON 100% FIO2. DR HAYES STATED HE WOULD CHECK BACK TOMORROW.
[2022-05-05 08:01] LABS: BASOPHILS ABSOLUTE AUTO 0.03 K/mm3 (0.00-0.23); BASOPHILS PERCENT AUTO 0 % (0-2); EOSINOPHILS ABSOLUTE AUTO 0.01 K/mm3 (0.00-0.68); EOSINOPHILS PERCENT AUTO 0 % (0-6); Hematocrit 33.4 % (37.0-53.0); Hemoglobin 10.9 g/dL (13.5-17.5); IMMATURE GRAN ABSOLUTE AUTO 0.08 K/mm3 (0.00-0.10); IMMATURE GRAN PERCENT AUTO 1 % (0-1); LYMPHOCYTES PERCENT AUTO 10 % (21-46); MONOCYTES ABSOLUTE AUTO 0.86 K/mm3 (0.16-1.47); MONOCYTES PERCENT AUTO 7 % (4-13); Mean Corpuscular HGB 26.8 pg (26.0-34.0); Mean Corpuscular HGB Conc 32.6 g/dL (31.5-36.5); Mean Corpuscular Volume 82 fL (80-100); NEUTROPHILS ABSOLUTE AUTO 10.49 K/mm3 (1.96-9.15); NEUTROPHILS PERCENT AUTO 82 % (41-73); NRBC ABSOLUTE 0.04 K/mm3 (0.00-0.02); NRBC Auto 0.3 /100 WBC (0.0-0.2); Platelet Count 297 K/mm3 (150-400); RDW Coefficient Variation 15.2 % (11.7-14.2); RDW Standard Deviation 45.1 fL (35.1-46.3); Red Blood Cell Count 4.07 M/mm3 (4.30-5.90); White Blood Cell Count 12.77 K/mm3 (4.00-11.30)
[2022-05-05 08:24] LABS: Albumin, Blood 2.9 g/dL (3.4-5.0); Albumin/Globulin Ratio 0.6 (0.8-1.8); Bilirubin, Total 0.6 mg/dL (0.1-1.0); Bun/Creatinine Ratio 15.5 (12.0-20.0); Creatinine, Blood 6.21 mg/dL (0.60-1.20); Globulin, Blood 4.7 g/dL (2.2-4.0); Potassium, Blood 4.9 mmol/L (3.5-5.5); Total Protein, Blood 7.6 g/dL (6.4-8.2)
--- NOTE | 2022-05-05 08:27 | NUR ---
PHYSICAL THERAPY AT BEDSIDE
--- NOTE | 2022-05-05 15:41 | NUR ---
Pt sitting on side of bed, wearing Airvo. States back pain 6/10 at this time. Given NOrco, 2 tabs per PRN orders.
--- NOTE | 2022-05-05 16:17 | NUR ---
PT RESTING WHILE LAYING ON RIGHT SIDE. SATURATION LOW 90S ON 90% FIO2. FAMILY AT BEDSIDE. NO ACUTE NEEDS AT THIS TIME.
--- NOTE | 2022-05-05 17:37 | NUR ---
SHIFT SUMMARY: PT HAS BEEN ON AIRVO 40L AND 90% FIO2 MAJORITY OF DAY. THIS EVENING HE LAYED DOWN AND FELL ASLEEP AND DESATTED INTO THE 80S ON 100%. RT SWITCHED HIM BACK TO BIPAP SETTINGS. RECIEVED DIALYSIS TODAY. PT STATES HIS BREATHING FEELS IMPROVED TODAY AFTER DIALYSIS. CARDIOLOGY TO CHECK DAY TO DAY FOR PT READINESS FOR ANGIO
[2022-05-06 03:16] LABS: BASOPHILS ABSOLUTE AUTO 0.03 K/mm3 (0.00-0.23); BASOPHILS PERCENT AUTO 0 % (0-2); EOSINOPHILS ABSOLUTE AUTO 0.09 K/mm3 (0.00-0.68); EOSINOPHILS PERCENT AUTO 1 % (0-6); Hematocrit 31.7 % (37.0-53.0); Hemoglobin 10.6 g/dL (13.5-17.5); IMMATURE GRAN ABSOLUTE AUTO 0.09 K/mm3 (0.00-0.10); IMMATURE GRAN PERCENT AUTO 1 % (0-1); LYMPHOCYTES ABSOLUTE AUTO 1.47 K/mm3 (0.84-5.20); LYMPHOCYTES PERCENT AUTO 12 % (21-46); MONOCYTES ABSOLUTE AUTO 1.07 K/mm3 (0.16-1.47); MONOCYTES PERCENT AUTO 8 % (4-13); Mean Corpuscular HGB 27.5 pg (26.0-34.0); Mean Corpuscular HGB Conc 33.4 g/dL (31.5-36.5); Mean Corpuscular Volume 82 fL (80-100); Mean Platelet Volume 12.3 fL (9.1-12.4); NEUTROPHILS ABSOLUTE AUTO 9.95 K/mm3 (1.96-9.15); NEUTROPHILS PERCENT AUTO 78 % (41-73); NRBC ABSOLUTE 0.05 K/mm3 (0.00-0.02); NRBC Auto 0.4 /100 WBC (0.0-0.2); Platelet Count 265 K/mm3 (150-400); RDW Coefficient Variation 15.3 % (11.7-14.2); RDW Standard Deviation 45.1 fL (35.1-46.3); Red Blood Cell Count 3.86 M/mm3 (4.30-5.90)
[2022-05-06 03:35] LABS: Albumin, Blood 2.7 g/dL (3.4-5.0); Anion Gap 10 mmol/L (6-16); Blood Urea Nitrogen 70 mg/dL (8-24); Bun/Creatinine Ratio 13.9 (12.0-20.0); CO2, Blood 26 mmol/L (21-32); Calcium, Blood 9.7 mg/dL (8.5-10.1); Chloride, Blood 97 mmol/L (98-108); Creatinine, Blood 5.03 mg/dL (0.60-1.20); Glomerular Filtration Rate 11 (60-); Glucose, Blood 136 mg/dL (70-99); Phosphorus, Blood 6.6 mg/dL (2.5-4.9); Potassium, Blood 4.4 mmol/L (3.5-5.5); Sodium, Blood 133 mmol/L (136-145)
--- NOTE | 2022-05-06 05:48 | NUR ---
SHIFT SUMMARY ASSUMED CARE OF PT AT 1900. PT IS A/OX4. HEART SOUNDS IRREGULAR. LUNG SOUNDS DIMINISHED IN BASES. PT WORE AIRVO 40L @ 100% T/O THE NIGHT. ATTEMPT TO TITRATE PT DOWN TO 90% BUT PT DID NOT TOLERATE WELL. PT WILL DESAT WITH ACTIVITY. PT CHAPARRO DRAINING CLEAR YELLOW URINE. PT HAD NO NEW COMPLAINTS. PT STATES FEELING BETTER SINCE DIALYSIS.
[2022-05-06 07:09] LABS: HBSAG SCREEN Negative (Negative); HCV AB <0.1 (0.0-0.9); HEP A AB, IGM Negative (Negative); HEP B CORE AB, IGM Negative (Negative)
--- NOTE | 2022-05-06 07:14 | NUR ---
ASSUMED CARE: PT RESTING QUIETLY AT THIS TIME. AFIB IN THE 90S, AIRVO AT 40L 100% FIO2. NO ACUTE NEEDS AT THIS TIME.
--- NOTE | 2022-05-06 08:38 | NUR ---
CALL TO DIALYSIS NURSE AND THEY STATED PT WAS ON THEIR SCHEDULE FOR 9AM. CALL TO DR BARNES TO CHECK IF HE WAS PLANNING TO DO PROCEDURE TODAY AND DR INSTRUCTED TO DO DIALYSIS FIRST AND HE WOULD CHECK IN WITH PT AFTER TO SEE WHAT HIS TOLERANCE FOR LAYING FLAT WOULD BE. DR REYNOSO CAME INTO SEE PT AND WAS CONCERNED THAT FIO2 WAS STILL AT 100%. DR TRIALED PT ON 60L AND 85% AND PT MAINTAINED 94% BUT DID NOT TOLERATE. SETTINGS RETURNED TO 45L AND 100% FIO2.
--- NOTE | 2022-05-06 09:10 | NUR ---
PT TAKEN TO DIALYSIS
--- NOTE | 2022-05-06 11:15 | NUR ---
PT'S HR INCREASED INTO 150S. DISCUSSED WITH FURNITURE TECHNICIAN AND DIALYSIS NURSE AND IT WAS DECIDED TO GIVE BP MEDS THAT WERE HELD FOR DIALYSIS THIS AM
--- NOTE | 2022-05-06 11:32 | NUR ---
CALL TO DR REYNOSO REGARDING PT'S CXR RESULT. DR INSTRUCTED FOR STAT COVID SWAB AND PROCALCITONIN. STATED WILL REVIEW CHART FOR POSSIBLITY OF IV ABX. STATED WILL REVIEW FURTHER AND DETERMINE IF PULM IS NEEDED.
[2022-05-06 12:17] LABS: Influenza A, PCR NEGATIVE (NEGATIVE); Influenza B, PCR NEGATIVE (NEGATIVE); Resp Syncytial Virus, PCR NEGATIVE (NEGATIVE); SARS-Cov-2 (COVID-19) PCR, MMC NEGATIVE (NEGATIVE)
--- NOTE | 2022-05-06 14:33 | NUR ---
DR REYNOSO CAME TO CHECK ON PT. MADE HIM AWARE THAT PT WAS TACHING INTO THE 130S BUT NOT SUSTAINING. DR STATED TO LET HIM KNOW IF HR SUSTAINS. DR ADJUSTED PT'S MEDS WELL FOR TOMORROW
--- NOTE | 2022-05-06 17:27 | NUR ---
SHIFT SUMMARY: PT RECEIVED DIALYSIS WITH A TOTAL OF 9L REMOVED IN 3 DAYS. PT STATES BREATHING FEELS IMPROVED AND CAN TOLERATE LAYING FLAT FOR SHORT PERIODS. CURRENTLY 50L WITH 85% FIO2. ABLE TO TITRATE O2 IF INCREASE PRESSURE. ABX STARTED TO DAY FOR POTENTIAL PNEUMONIA. CARDIOLOGY MONITORING DAY TO DAY TO DETERMINE WHEN ANGIO CAN OCCUR. NO ACUTE NEEDS OR CONCERNS AT THIS TIME.
[2022-05-07 04:48] LABS: BASOPHILS ABSOLUTE AUTO 0.04 K/mm3 (0.00-0.23); BASOPHILS PERCENT AUTO 0 % (0-2); EOSINOPHILS ABSOLUTE AUTO 0.15 K/mm3 (0.00-0.68); EOSINOPHILS PERCENT AUTO 1 % (0-6); Hematocrit 31.9 % (37.0-53.0); Hemoglobin 10.5 g/dL (13.5-17.5); IMMATURE GRAN ABSOLUTE AUTO 0.16 K/mm3 (0.00-0.10); IMMATURE GRAN PERCENT AUTO 1 % (0-1); LYMPHOCYTES ABSOLUTE AUTO 1.96 K/mm3 (0.84-5.20); LYMPHOCYTES PERCENT AUTO 13 % (21-46); MONOCYTES ABSOLUTE AUTO 1.12 K/mm3 (0.16-1.47); MONOCYTES PERCENT AUTO 7 % (4-13); Mean Corpuscular HGB 27.2 pg (26.0-34.0); Mean Corpuscular HGB Conc 32.9 g/dL (31.5-36.5); Mean Corpuscular Volume 83 fL (80-100); Mean Platelet Volume 11.7 fL (9.1-12.4); NEUTROPHILS ABSOLUTE AUTO 12.26 K/mm3 (1.96-9.15); NEUTROPHILS PERCENT AUTO 78 % (41-73); NRBC ABSOLUTE 0.13 K/mm3 (0.00-0.02); NRBC Auto 0.8 /100 WBC (0.0-0.2); Platelet Count 292 K/mm3 (150-400); RDW Coefficient Variation 15.4 % (11.7-14.2); RDW Standard Deviation 45.7 fL (35.1-46.3); Red Blood Cell Count 3.86 M/mm3 (4.30-5.90); White Blood Cell Count 15.69 K/mm3 (4.00-11.30)
--- NOTE | 2022-05-07 06:26 | NUR ---
Assumed care of pt at 1900. A/Ox4, patient states having some anxiety. Bedrest. Maintains 87-89% on HFNC 50L/100% or 93-95% on CPAP with 100% FiO2. Patient was unable to keep CPAP on during this shift, and attributes part of the reason to be anxiety. LS clear on top and dim at bases. Nonproductive cough noted. VARELA. Afib on tele that flips back and forth into SR, rate in the 90's. Denies any CP/pressure. BP stable. Strong +2 pulses t/o. 2+ pitting edema to BLE. Balderas catheter draining to gravity dark/yellow urine. Will report to rainer DOTSON.
--- NOTE | 2022-05-07 07:00 | NUR ---
ASSUME CARE: I have assumed care of this patient. Pt is easily arousable with heparin currently running at 17 units.
--- NOTE | 2022-05-07 09:53 | NUR ---
PROVIDER PHONE CALL: RT reports concern to RN regarding pts respiratory status while he is in dialysis. Dr Clayton called and notified; will come see pt in dialysis.
[2022-05-07 13:10] LABS: Vancomycin, Random 19.6 ug/mL
--- NOTE | 2022-05-07 14:09 | NUR ---
PROVIDER UPDATE: Pt converted into Afib shortly after he returned from dialysis. Dr Donahue was called and notified.
[2022-05-07 16:45] LABS: Base Excess Venous -4.3 mmol/L; Bicarbonate Venous 20.9 mmol/L (24.0-30.0); PCO2 Venous 35.9 mmHg (38-42); pH Blood Venous 7.37 (7.34-7.37)
[2022-05-07 16:54] LABS: Albumin, Blood 2.6 g/dL (3.4-5.0); Anion Gap 14 mmol/L (6-16); Blood Urea Nitrogen 66 mg/dL (8-24); Bun/Creatinine Ratio 12.8 (12.0-20.0); CO2, Blood 21 mmol/L (21-32); Calcium, Blood 10.1 mg/dL (8.5-10.1); Chloride, Blood 94 mmol/L (98-108); Creatinine, Blood 5.17 mg/dL (0.60-1.20); Glomerular Filtration Rate 11 (60-); Glucose, Blood 233 mg/dL (70-99); Potassium, Blood 4.8 mmol/L (3.5-5.5); Sodium, Blood 129 mmol/L (136-145)
--- NOTE | 2022-05-07 18:41 | NUR ---
SHIFT SUMMARY: NEURO: pt A/Ox4; COLLAZO. He was initially easily arousable, however as the day has progressed pt has become very fatigued. This was address with medical team. CARDIAC: NSR this morning, converted to Afib this afternoon after dialysis. Pt had similar effect after dialysis yesterday. BP stable. RESPIRATORY: wheezes this AM. Clear since dialysis. Airvo currently at 60L/min 65% FiO2. To note, just as pt left to dialysis he required significant increase in airvo settings with NRB at 100% over Airvo cannula. RN/RT able to titrate requirements down after dialysis. Pt very anxious during this time and refuses CPAP. GI/: shepherd in place draining dark, tea colored urine. Pt tolerating diet. No BM. SKIN: no new breakdown noted PSYCH/SOCIAL: several family members at bedside throughout the day.
--- NOTE | 2022-05-07 20:45 | NUR ---
ASSUMED CARE AFTER BEDSIDE REPORT, PT ON HFNC 60L/85%. PT IS ALERT, DENIES DISCOMFORT-"EXCEPT THIS BED". PT IS PALE, AND APPEARS TIRED. LUNGS NOTED W FINE BB CRACKLES, NO COUGH. CHAPARRO DRNG CONCENTRATED URINE. PT HAD DIALYSIS TODAY. CALL LIGNT IN REACH, ABLE TO COMMUNICATED NEEDS.
--- NOTE | 2022-05-08 00:10 | NUR ---
PT WAS ASSISTED EARLIER TO SIT SIDE OF BED AT HIS REQUEST, AND CONT IN THIS POSITION PER HIS PREFERENCE. PT REQUESTED RT TO DECREASE O2 FLOW FOR "TOO MUCH AIR", AND DECREASED TO 50L AND INCREASED TO 90% BY RT. VSS, NOTED BACK IN SR AT THIS TIME. HEPARIN GTT CONT AT 17ML/HR. CALL LIGHT CONT IN REACH.
[2022-05-08 03:20] LABS: BASOPHILS ABSOLUTE AUTO 0.06 K/mm3 (0.00-0.23); BASOPHILS PERCENT AUTO 0 % (0-2); EOSINOPHILS ABSOLUTE AUTO 0.19 K/mm3 (0.00-0.68); EOSINOPHILS PERCENT AUTO 1 % (0-6); Hematocrit 31.5 % (37.0-53.0); Hemoglobin 10.4 g/dL (13.5-17.5); IMMATURE GRAN ABSOLUTE AUTO 0.22 K/mm3 (0.00-0.10); IMMATURE GRAN PERCENT AUTO 1 % (0-1); LYMPHOCYTES ABSOLUTE AUTO 1.83 K/mm3 (0.84-5.20); LYMPHOCYTES PERCENT AUTO 11 % (21-46); MONOCYTES ABSOLUTE AUTO 1.13 K/mm3 (0.16-1.47); MONOCYTES PERCENT AUTO 7 % (4-13); Mean Corpuscular HGB 27.1 pg (26.0-34.0); Mean Corpuscular Volume 82 fL (80-100); Mean Platelet Volume 11.9 fL (9.1-12.4); NEUTROPHILS ABSOLUTE AUTO 13.79 K/mm3 (1.96-9.15); NEUTROPHILS PERCENT AUTO 80 % (41-73); NRBC ABSOLUTE 0.17 K/mm3 (0.00-0.02); Platelet Count 292 K/mm3 (150-400); RDW Coefficient Variation 15.3 % (11.7-14.2); RDW Standard Deviation 44.5 fL (35.1-46.3); Red Blood Cell Count 3.84 M/mm3 (4.30-5.90); White Blood Cell Count 17.22 K/mm3 (4.00-11.30)
[2022-05-08 03:35] LABS: Albumin, Blood 2.5 g/dL (3.4-5.0); Anion Gap 13 mmol/L (6-16); Blood Urea Nitrogen 81 mg/dL (8-24); Bun/Creatinine Ratio 13.4 (12.0-20.0); CO2, Blood 23 mmol/L (21-32); Chloride, Blood 93 mmol/L (98-108); Creatinine, Blood 6.03 mg/dL (0.60-1.20); Glomerular Filtration Rate 9 (60-); Glucose, Blood 136 mg/dL (70-99); Phosphorus, Blood 6.9 mg/dL (2.5-4.9); Potassium, Blood 4.6 mmol/L (3.5-5.5); Sodium, Blood 129 mmol/L (136-145)
--- NOTE | 2022-05-08 05:00 | NUR ---
PT SAT SIDE OF BED FOR COUPLE HOURS, BECOMING RESTLESS AND STATING HE WAS UNCOMFORTABLE BUT WAS NOT CO PAIN. WITH PROMPTING & FURTHER QUESTIONS PT SAID YES, HE WOULD LIKE SOMETHING FOR SLEEP AND FOR BACK PAIN. PT WAS MED W MELATONIN & NORCO & SLEPT FOR ABOUT 3 HOURS. WHEN PT AWAKENED, PT WAS ANXIOUS, RR MILDLY INCREASED AND SATS DROPPED LOW 82%, BUT IMPROVED TO 89% W COACHING TO SLOW DEEP BREATHS. RT NOTIFIED & FIO2 INCREASED TO 60L/95%. HEPARIN GTT CONT 17U/HR. PT CONT PLEASANT & ALERT. WANTING TO KNOW HOW HIS LABS ARE LOOKING THIS AM. CALL LIGHT CONT IN REACH, HOB UP 40*.
--- NOTE | 2022-05-08 18:22 | NUR ---
PT SUMMARY: PT ALERT AND ORIENTED X3, STILL FEELS WEAK AND LETHARGIC, VITALS HRR SR 80-90'S WILL OCCASIONALLY TACH UP TO 130'S WITH EXERTION ALSO HAD AN EPISODE AFTER DIALYSIS, BP SYSTOLIC 90-110'S, PT REMAINS ON AIRVO STARTED AT 60L 95% THIS MORNING AT SHIFT CHANGE WENT DOWN TO 35L 55% AFTER DIALYSIS TOOK 4L FLUID OUT FOR TODAY. PT HAD ANGIO DONE TODAY AT AROUND 3PM MOSTLY DIAGNOSTIC PLAN TO REATTEMPT ANGIO IN THE AFTERNOON TOMORROW PER DR BARNES AFTER DIALYZING PT IN AM AND GET ECHO DONE AND POSSIBLY PLACE A STENT ON ONE OF THE DISEASED VESSEL IN ON OF THE GRAFT. PT AREED WITH THE PLAN. PT HAS A TR BAND ON LEFT RADIAL WITH 12CC OF AIR IN IT DR BARNES RECOMMENDED TO WAIT ANOTHER 2 MORE HRS BEFORE DEFLATING THE TR BAND DUE TO PT STILL BEING ON HEPARIN GTT. PT ALSO HAS RIGHT GROIN VENOUS ACCESS SITE, WITH CHG TEGADERM DRESSING IN PLACE CDI. PT DENIES ANY KIND OF PAIN PSOT PROCEDURE BP WAS A LITTLE SOFT ON THE 88-90'S SYSTOLIC POST PROCEDURE POSSIBLY DUE TO SEDATION MEDS, PT O2 SETTINGS ON AIRVO INCREASED TO 40L 95% FIO2 DURING THE PROCEDURE, WILL TITRATE O2 DOWN PT CAN TOLERATE. AT THE BEDSIDE MOSTLY ALL SHIFT WAS AWARE OF THE PLAN FOR THE PT. PT NOW RESTING IN BED EATING DINNER, NO COMPLAINS AT THIS TIME, CALL LIGHT IN REACH WILL REPORT TO ONCOMING SHIFT
--- NOTE | 2022-05-08 21:00 | NUR ---
UPDATE DR. BARNES INSTRUCTED TO GIVE ALL CARDIAC MEDS WITH CURRENT BP. MAP REMAINED ABOVE 65. WILL CONT TO MONITOR.
--- NOTE | 2022-05-08 22:44 | NUR ---
UPDATE PT STATING HE IS "DONE" AND DOES NOT ANGIO TOMORROW. PHYSICIAN UPDATED AND IS CURRENLTY AT BEDSIDE WITH PT. PT AND REQUESTING TO SEE PHYSICIAN AT THIS TIME. PHYSICIAN AWARE
--- NOTE | 2022-05-08 22:45 | NUR ---
TR BAND DEFLATE SEE ICU FLOWSHEET FOR TR BAND DEFLATION TIMES. SITE WNL. PULSES STRONG .NO HEMATOMA FORMATION.
--- NOTE | 2022-05-08 23:25 | NUR ---
UPDATE PHYSICIAN AT BEDSIDE. PHYSICIAN DISCUSSED CODE STATUS WITH PT. PER PT REQUEST PT NOW DNR/DNI.
--- NOTE | 2022-05-08 23:45 | NUR ---
TR BAND REMOVED TR BAND REMOVED AT 2330. SITE CLEANED AND TEGADERM APPLIED. SITE WNL. ARM BOARD IN PLACE. PULSES STRONG.
--- NOTE | 2022-05-09 00:20 | NUR ---
PT HANDOFF PT ALERT AND ORIENTED X 4. HR STABLE. BP STABLE. NO CP OR PRESSURE. PT REPORTS TO NOT WANT ANGIO AND FEELS "DONE AND TIRED WITH EVERYTHING." PHYSICIAN ADDRESSED CODE STATUS AT BEDSIDE. PT NOW DNR PER PHYSICIAN ORDER. THIS RN LEFT MESSAGE WITH PALLIATIVE CARE STATING PT NEEDS STAT MEETING IN AM. WITH PT AT BEDSIDE DURING DISCUSSION WITH PHYSICIAN. CHAPARRO IN PLACE,PATENT. HEPARIN GTT, SEE EMAR. OXGEN SATURATION MAINTAINED ABOVE 92% ON 60 L AND 100% ON AIRVO. CALL LIGHT WIHTIN REACH. REPORT GIVEN TO MAURI ALBERTS
[2022-05-09 03:36] LABS: BASOPHILS ABSOLUTE AUTO 0.06 K/mm3 (0.00-0.23); BASOPHILS PERCENT AUTO 0 % (0-2); EOSINOPHILS ABSOLUTE AUTO 0.32 K/mm3 (0.00-0.68); EOSINOPHILS PERCENT AUTO 2 % (0-6); Hematocrit 31.8 % (37.0-53.0); Hemoglobin 10.2 g/dL (13.5-17.5); IMMATURE GRAN ABSOLUTE AUTO 0.35 K/mm3 (0.00-0.10); IMMATURE GRAN PERCENT AUTO 2 % (0-1); LYMPHOCYTES ABSOLUTE AUTO 2.13 K/mm3 (0.84-5.20); LYMPHOCYTES PERCENT AUTO 11 % (21-46); MONOCYTES ABSOLUTE AUTO 1.23 K/mm3 (0.16-1.47); MONOCYTES PERCENT AUTO 7 % (4-13); Mean Corpuscular HGB 26.8 pg (26.0-34.0); Mean Corpuscular HGB Conc 32.1 g/dL (31.5-36.5); Mean Corpuscular Volume 84 fL (80-100); NEUTROPHILS ABSOLUTE AUTO 14.93 K/mm3 (1.96-9.15); NEUTROPHILS PERCENT AUTO 79 % (41-73); NRBC ABSOLUTE 0.16 K/mm3 (0.00-0.02); NRBC Auto 0.8 /100 WBC (0.0-0.2); Platelet Count 326 K/mm3 (150-400); RDW Coefficient Variation 15.6 % (11.7-14.2); RDW Standard Deviation 46.3 fL (35.1-46.3); Red Blood Cell Count 3.81 M/mm3 (4.30-5.90); White Blood Cell Count 19.02 K/mm3 (4.00-11.30)
[2022-05-09 04:03] LABS: Bun/Creatinine Ratio 11.3 (12.0-20.0); Calcium, Blood 9.6 mg/dL (8.5-10.1); Creatinine, Blood 4.77 mg/dL (0.60-1.20); Potassium, Blood 4.3 mmol/L (3.5-5.5)
--- NOTE | 2022-05-09 05:58 | NUR ---
SHIFT SUMMARY ASSUMED CARE OF PT AT 0000. REPORT GIVEN FROM ROBBI DOTSON. PT IS A/OX4 BUT VERY LETHARGIC. IN RROM WITH PT. PT SLEPT T/O THE NIGHT WITH NO NEW COMPLAINTS.
--- NOTE | 2022-05-09 10:20 | NUR ---
PT UPDATE WHEN MEETING W/ THE PT HE STATED THAT HE IS UNCOMFORTABLE, SOB, AND DOES NOT WISH TO HAVE AN ANGIO OR DIALYSIS. THE PT IS TIRED OF FIGHTING HIS BODY. DR. HAYES TALKED TO THE PT AND EXPLAINED RISK'S AND BENEFITS OF THE ANGIO AND THE PT STILL DENIED INTERVENTIONS. DR. PATEL TALKED TO THE PT ABOUT OPTIONS W/ DIALYSIS AND PT REFUSED INTERVENTIONS. ONCE FAMILY ARRIVED TO THE PT'S ROOM THEY CONGRUENTLY DECIDED TO GO TO COMFORT CARE W/ ESTELA FROM PALLITIVE IN THE ROOM. DR. HAYES NOTIFED BY THE CHARGE NURSE, AND DR. ALVAREZ IS BEING CALLED BY ESTELA FROM PALLITIVE.
--- NOTE | 2022-05-09 11:41 | NUR ---
Multiple visits this AM. Pt has elected to pursue comfort care. Pt reports his quality of life has been diminishing for quite some time. Pt's spouse at bedside during initial conversation and is in agreement with his decision. Pt and spouse would like for Pt's children to arrive before implenting comfort care. Educated on comfort care philosophy with V/U made by Pt and spouse. Offered supportive visit when children arrived and answered questions. Spoke with Dr Clayton and discussed case. Placed comfort care order, comfort care order set, and D/C maintenance medications per V/O from Dr Clayton. Palliative Care will remain available.
--- NOTE | 2022-05-09 13:22 | NUR ---
Spiritual care visit conducted. Pt is lying in bed and alert. He has spouse, Radha, and other family members bedside. Pt talks about how he is done and ready to end the suffering but the care of Radha after he goes is his greatest concern. Radha greatest worry is that pt will suffer or be in pain. She requests a prayer for strength. I gladly provide prayer for pt, Radha and the family. The prayer stirs some appropriate emotions. Pt stated that it was good and the rest of the family agreed. I provide therapeutic listening, gentle career guidance counselor, insights about and dying and a calming presence. I will continue to remain available to pt and family.
--- NOTE | 2022-05-09 17:38 | NUR ---
PT DIAPHORETIC AND HAD A COOL WASH CLOTH PLACED ON THE HEAD, FAN TURNED ON, BLANKET REPLACED W/ A SHEET, AND HE WAS WIPED DOWN W/ A COOL CLOTH
--- NOTE | 2022-05-09 17:41 | NUR ---
FAN ON, PT HAS A SHEET INSTEAD OF A BLANKET, WIPED DOWN W/ A COOL CLOTH, AND COOL WASH CLOTH FOR THE HEAD
--- NOTE | 2022-05-09 19:41 | NUR ---
FINAL DISCHARGE [employer] CAME FOR PT AND LEFT AT 1940.
== END 2022-05-09 19:44 ==
LOC: ER 09:20 → MEDS 12:32 → PCU 12:32 → MEDS 14:31 → PCU 05-03 10:26
PROVIDERS: Emergency Medicine; Family Medicine; Hospitalist; Internal Medicine Cardiovascular Disease; Internal Medicine Nephrology; ADMIT Internal Medicine
PROC: 5A09357 Assistance with Respiratory Ventilation, Less than 24 Consecutive Hours, Continuous Positive Airway Pressure (ICD-10-PCS; principal; 2022-05-03)
PROC: 0JH63XZ Insertion of Tunneled Vascular Access Device into Chest Subcutaneous Tissue and Fascia, Percutaneous Approach (ICD-10-PCS; 2022-05-04)
PROC: 02HV33Z Insertion of Infusion Device into Superior Vena Cava, Percutaneous Approach (ICD-10-PCS; 2022-05-04)
PROC: B548ZZA Ultrasonography of Superior Vena Cava, Guidance (ICD-10-PCS; 2022-05-04)
PROC: B518ZZA Fluoroscopy of Superior Vena Cava, Guidance (ICD-10-PCS; 2022-05-04)
PROC: 5A1D70Z Performance of Urinary Filtration, Intermittent, Less than 6 Hours Per Day (ICD-10-PCS; 2022-05-05)
PROC: 5A0955A Assistance with Respiratory Ventilation, Greater than 96 Consecutive Hours, High Flow/Velocity Cannula (ICD-10-PCS; 2022-05-05)
PROC: 4A023N8 Measurement of Cardiac Sampling and Pressure, Bilateral, Percutaneous Approach (ICD-10-PCS; 2022-05-08)
PROC: B2111ZZ Fluoroscopy of Multiple Coronary Arteries using Low Osmolar Contrast (ICD-10-PCS; 2022-05-08)
PROC: B2181ZZ Fluoroscopy of Left Internal Mammary Bypass Graft using Low Osmolar Contrast (ICD-10-PCS; 2022-05-08)
PROC: B51V1ZA Fluoroscopy of Other Veins using Low Osmolar Contrast, Guidance (ICD-10-PCS; 2022-05-08)
PROC: 4A1239Z Monitoring of Cardiac Output, Percutaneous Approach (ICD-10-PCS; 2022-05-08)
DX: I21.4 Non-ST elevation (NSTEMI) myocardial infarction (principal); I50.43 Acute on chronic combined systolic (congestive) and diastolic (congestive) heart failure; J18.9 Pneumonia, unspecified organism; J96.01 Acute respiratory failure with hypoxia; N18.6 End stage renal disease; N17.9 Acute kidney failure, unspecified; I13.2 Hypertensive heart and chronic kidney disease with heart failure and with stage 5 chronic kidney disease, or end stage renal disease; E87.1 Hypo-osmolality and hyponatremia; I48.92 Unspecified atrial flutter; Z51.5 Encounter for palliative care; Z66 Do not resuscitate; E11.22 Type 2 diabetes mellitus with diabetic chronic kidney disease; E87.8 Other disorders of electrolyte and fluid balance, not elsewhere classified; I25.10 Atherosclerotic heart disease of native coronary artery without angina pectoris; E78.00 Pure hypercholesterolemia, unspecified; G47.33 Obstructive sleep apnea (adult) (pediatric); I48.0 Paroxysmal atrial fibrillation; Z20.822 Contact with and (suspected) exposure to COVID-19; Z95.1 Presence of aortocoronary bypass graft; Z99.2 Dependence on renal dialysis; Z79.899 Other long term (current) drug therapy; Z79.02 Long term (current) use of antithrombotics/antiplatelets; Z79.891 Long term (current) use of opiate analgesic; Z79.82 Long term (current) use of aspirin; Z98.890 Other specified postprocedural states; I24.9 Acute ischemic heart disease, unspecified; Z86.73 Personal history of transient ischemic attack (TIA), and cerebral infarction without residual deficits; I25.2 Old myocardial infarction
CPT/HCPCS: 0241U; 36415; 36558; 71045; 71260; 76937; 77001; 80048; 80053; 80061; 80069; 80074; 80202; 81001; 82306; 82570; 82803; 83036; 83735; 83880; 83970; 84100; 84145; 84156; 84484; 84550; 85014; 85018; 85025; 85049; 85347; 85520; 85610; 85730; 86317; 87040; 93005; 93010; 93306; 93457; 94640; 94660; 94664; 94760; 94762; 96374; 97110; 97162; 97166; 97530; 97535; 99152; 99153; 99285-25; A9270; C1750; C1769; C1894; C8929; J0456; J0692; J1644; J1940; J2060; J2250; J2270; J2405; J3010; J3370; J7030; J7040; J7050; Q9957; Q9967